=== PATIENT | female | born 1995 | race Caucasian/White ===

== ENCOUNTER → 2019-11-05 | Outpatient (CLI) | payer OTHER ==
[2019-11-05 14:36] LABS: HCT 41.3 % (34.0-46.0); HGB 13.9 gm/dL (11.4-16.0); MCHC 33.7 g/dL (31.0-37.0); Platelet Count 189 k/uL (150-450); RBC 4.21 m/uL (3.80-5.40); WBC 8.1 k/uL (3.8-10.6)
[2019-11-05 14:44] LABS: Partial Thromboplastin Time 24.3 sec (22.0-30.0); Prothrombin Time 10.2 sec (9.0-12.0)
[2019-11-05 15:00] LABS: T4, Free (Free Thyroxine) 0.72 ng/dL (0.78-2.19)
--- NOTE | 2019-11-05 15:08 | US ---
EXAMINATION TYPE: US pelvic complete DATE OF EXAM: 11/05/2019 COMPARISON: NONE CLINICAL HISTORY: N93.8 Other specified abnormal uterine and vaginal. Dysfunctional uterine bleeding. TECHNIQUE: Transabdominal (TA). Transabdominal sonographic images of the pelvis were acquired.: Date of LMP: 10/17/19 EXAM MEASUREMENTS: Uterus: 9.5 x 3.5 x 4.8 cm Endometrial Stripe: 0.9 cm Right Ovary: 3.1 x 1.5 x 1.6 cm Left Ovary: 2.6 x 2.1 x 2.6 cm 1. Uterus: Anteverted wnl 2. Endometrium: wnl 3. Right Ovary: wnl 4. Left Ovary: wnl 5. Bilateral Adnexa: wnl 6. Posterior cul-de-sac: wnl Endometrial stripe within normal limits for secretory phase of menstrual cycle. IMPRESSION: Transabdominal pelvic ultrasound study within normal limits.
[2019-11-06 02:14] LABS: Progesterone 7.1 ng/mL
[2019-11-06 02:43] LABS: Prolactin 4.4 ng/mL (2.8-29.2)
[2019-11-06 02:44] LABS: Follicle Stimulating Hormone 5.8 mIU/mL; Luteinizing Hormone 6.1 mIU/mL
== END | disposition home or self-care (01) ==
LOC: RADUSWWP 14:06
PROVIDERS: ATTEND Obstetrics & Gynecology
DX: N93.8 Other specified abnormal uterine and vaginal bleeding (principal)
CPT/HCPCS: 76856; 83001; 83002; 84144; 84146; 84439; 84443; 84479; 85027; 85246; 85610; 85730

== ENCOUNTER 2020-01-28 19:16 | Emergency (ER) | payer OTHER ==
[2020-01-28 19:28] VITALS: BP 117/76; PULSE 78; RESP 18; TEMP 97.9
--- NOTE | 2020-01-28 19:45 | ED ---
Head Injury HPI - General Chief complaint: Head Injury Stated complaint: Head Injury Time Seen by Provider: 01/28/20 19:32 Source: patient, RN notes reviewed Mode of arrival: ambulatory Limitations: no limitations - History of Present Illness Initial comments: This a 24-year-old female presents emergency Department chief complaint of headache, head injury. Patient states she was getting off the plane around midnight and states that a suitcase fell out of the overhead compartment striking her head. Patient states she had immediate headache. Patient does not take any blood thinners. Denies any blurred vision. Patient states she has pain when she leans over. She has had a constant headache and had some episodes of nausea today patient did have some vomiting has no complaints of nausea vomiting currently. Patient denies any neck pain or neck stiffness no extremity weakness or paresthesias no chest pain or shortness breath no abdominal pain. Patient denies any chance . - Related Data Allergies/Adverse reactions: Allergies Allergy/AdvReac Type Severity Reaction Status Date / Time No Known Allergies Allergy Verified 01/28/20 19:28 Review of Systems ROS Statement: Those systems with pertinent positive or pertinent negative responses have been documented in the HPI. ROS Other: All systems not noted in ROS Statement are negative. Past Medical History Past Medical History: No Reported History History of Any Multi-Drug Resistant Organisms: None Reported Past Surgical History: No Surgical Hx Reported, Section Past Psychological History: No Psychological Hx Reported Smoking Status: Vaper Past Alcohol Use History: Occasional Past Drug Use History: Marijuana General Exam Limitations: no limitations General appearance: alert, in no apparent distress Head exam: Present: atraumatic, normocephalic, normal inspection, other (Mild forehead tenderness) Eye exam: Present: normal appearance, PERRL, EOMI. Absent: scleral icterus, conjunctival injection, periorbital swelling ENT exam: Present: normal exam, normal oropharynx, mucous membranes moist, TM's normal bilaterally, normal external ear exam Neck exam: Present: normal inspection, full ROM. Absent: tenderness, meningismus, lymphadenopathy Respiratory exam: Present: normal lung sounds bilaterally. Absent: respiratory distress, wheezes, rales, rhonchi, stridor Cardiovascular Exam: Present: regular rate, normal rhythm, normal heart sounds. Absent: systolic murmur, diastolic murmur, rubs, gallop, clicks Neurological exam: Present: alert, oriented X3, CN II-XII intact, reflexes normal, other (Finger to nose intact bilaterally without over shooting). Absent: motor sensory deficit Skin exam: Present: warm, dry, intact, normal color. Absent: rash Course Vital Signs 01/28/20 19:24 Temperature 97.9 F Pulse Rate 78 Respiratory 18 Rate Blood Pressure 117/76 O2 Sat by Pulse 100 Oximetry Medical Decision Making - Medical Decision Making CT of the brain was unremarkable. Patient has mild concussion symptoms. Patient we discharged stable condition return parameters were discussed. Disposition Clinical Impression: Head injury Disposition: HOME SELF-CARE Condition: Stable Instructions (If sedation given, give patient instructions): Concussion (ED) Additional Instructions: Please return to the Emergency Department if symptoms worsen or any other concerns. Is patient prescribed a controlled substance at d/c from ED?: No Referrals: None,Stated [Primary Care Provider] - 1-2 days Time of Disposition: 20:36
--- NOTE | 2020-01-28 20:19 | CT ---
EXAMINATION TYPE: CT brain wo con DATE OF EXAM: 01/28/2020 COMPARISON: None HISTORY: ORTA after head injury CT DLP: 1043.4 mGycm Automated exposure control for dose reduction was used. Ventricles and sulci appear normal. There is no mass effect nor midline shift. There is no sign of in tracranial hemorrhage. Calvarium is intact. There is no evidence of cerebral edema. IMPRESSION: Normal unenhanced head CT scan.
== END 2020-01-28 20:50 | disposition home or self-care (01) ==
LOC: EC 19:16
DX: S09.90XA Unspecified injury of head, initial encounter (principal); F17.290 Nicotine dependence, other tobacco product, uncomplicated; W20.8XXA Other cause of strike by thrown, projected or falling object, initial encounter
CPT/HCPCS: 70450; 99283